=== PATIENT | male | born 1960 | race Two or more races ===

== ENCOUNTER 2018-02-01 05:57 | Day surgery (SDC) | payer BC ==
[2018-01-31 13:38] LABS: BASOPHILS % (AUTO) 0.5 % (0-1); EOSINOPHILS # (AUTO) 0.2 X10'3 (0-0.9); EOSINOPHILS % (AUTO) 3.2 % (0-6); HEMATOCRIT 34.3 % (42.0-52.0); HEMOGLOBIN 11.9 g/dl (14.0-17.9); LYMPHOCYTES # (AUTO) 2.2 X10'3 (1.1-4.8); LYMPHOCYTES % (AUTO) 29.6 % (21-51); MEAN CORPUSCULAR HEMOGLOBIN 31.3 PG (27.0-31.0); MEAN CORPUSCULAR HGB CONC 34.6 % (33.0-36.5); MEAN CORPUSCULAR VOLUME 90.6 FL (78-98); MEAN PLATELET VOLUME 8.9 FL (7.4-10.4); MONOCYTES # (AUTO) 0.5 X10'3 (0-0.9); MONOCYTES % (AUTO) 7.4 % (2-12); NEUTROPHILS # (AUTO) 4.4 X10'3 (1.8-7.7); NEUTROPHILS % (AUTO) 59.3 % (42-75); PLATELET COUNT 211 X10'3 (140-440); RED BLOOD COUNT 3.78 X10'6 (4.70-6.10); RED CELL DISTRIBUTION WIDTH 13.1 % (11.5-14.5); WHITE BLOOD COUNT 7.5 X10'3 (4.5-11.0)
[2018-01-31 13:47] LABS: ALBUMIN 3.7 G/DL (3.4-5.0); ANION GAP 13 (8-16); BLOOD UREA NITROGEN 68 MG/DL (7-18); BUN/CREATININE RATIO 13.5 (5.4-32.0); CALCIUM 7.3 MG/DL (8.5-10.1); CHLORIDE 108 MMOL/L (99-107); CREATININE 5.04 MG/DL (0.60-1.10); GLUCOSE 99 MG/DL (70-104); PARTIAL THROMBOPLASTIN TIME 28 SECONDS (22-32); POTASSIUM 5.5 MMOL/L (3.5-5.1); PROTHROMBIN TIME 10.4 SECONDS (9.0-12.0); SODIUM 143 MMOL/L (135-145); TOTAL CARBON DIOXIDE 22.1 MMOL/L (24-32); eGFR 12 ML/MIN
[~2018-02-01] VITALS: Ht 170.2 cm; Wt 80.0 kg
[2018-02-01] VITALS (15 sets, daily range): BP systolic 108–160; BP diastolic 57–113
[~2018-02-01 05:57] MED LIST: ASPI-974 PO; ATOR10TA PO; CLOP75TA35 PO; HYDR-4069 PO; NEBI20TA2 PO
[2018-02-01] MEDS ORDERED: LORazepam 0.5 MG tablet PO PRN (06:10)
[2018-02-01] MEDS ORDERED: diphenhydrAMINE 25mg capsule PO PRN (06:10)
[2018-02-01] MEDS ORDERED: sod bicarbonate 150mEq in D5W 1,150 ML IV ONE (06:10)
[2018-02-01] MEDS ORDERED: ASPI81TA52 PO (06:15)
[2018-02-01] MEDS ORDERED: normal saline 1000ml 1,000 ML IV SCH (06:20)
[2018-02-01] MEDS ORDERED: midazolam 2 mg/2 ml injection ONE (08:41)
[2018-02-01] MEDS ORDERED: heparin 1,000unit/ml 10ml vial 10 ML ONE (08:41)
[2018-02-01] MEDS ORDERED: fentaNYL/PF 50MCG/1 ML 2ML syringe ONE (08:41)
[2018-02-01] MEDS ORDERED: LIDOcaine 1%/PF (10mg/ml) 5ml vial ONE (08:41)
[2018-02-01] MEDS ORDERED: iohexol 350MG/ML 100ml bottle IV ONE ×3 (08:41→10:26)
[2018-02-01] MEDS ORDERED: iohexol 350 MG/ML 50ML vial IV ONE (08:41)
[2018-02-01] MEDS ORDERED: nitroGLYCERIN-Tridil 50MG/D5W 250 ML IV ONE (08:42)
[2018-02-01] MEDS ORDERED: clopidogrel 300mg tablet ONE (10:32)
[2018-02-01] MEDS ORDERED: heparin 10,000 units/1 ML INJ IV PRN (11:35)
[2018-02-01] MEDS ORDERED: heparin 10,000 units/1 ML INJ IV ONE (11:35)
[2018-02-01] MEDS ORDERED: aspirin 325mg tablet PO ONE (11:50)
[2018-02-01] MEDS ORDERED: CLOPIDOGREL BISULFATE 300MG TAB PO ONE (11:50)
[2018-02-01] MEDS ORDERED: cyclobenzaprine 10mg tablet PO PRN (11:55)
[2018-02-01] MEDS ORDERED: magnesium hydroxide 30ml (MOM) UD suspension PO PRN (11:55)
[2018-02-01] MEDS ORDERED: acetaminophen 325mg tablet PO PRN (11:55)
[2018-02-01] MEDS ORDERED: proCHLORperazine 10 MG/2 ml inj IV PRN (11:55)
[2018-02-01] MEDS ORDERED: OXAZEpam 15mg capsule PO PRN (11:55)
[2018-02-01] MEDS ORDERED: sodium bicarbonate (8.4%) inj. 150 MEQ in sodium chloride 0.45% 1,000 ML IV SCH (12:05)
[2018-02-01] MEDS ORDERED: docusate sod 100mg capsule PO SCH (20:00)
[2018-02-02] MEDS ORDERED: clopidogrel 75mg tablet PO SCH (08:00)
[2018-02-02] MEDS ORDERED: aspirin 325mg tablet PO SCH (08:30)
== END 2018-02-01 19:00 | disposition home or self-care (01) ==
LOC: SSTAY O 05:57
PROVIDERS: ATTEND Internal Medicine Cardiovascular Disease
DX: I25.10 Atherosclerotic heart disease of native coronary artery without angina pectoris (principal); E78.5 Hyperlipidemia, unspecified; I12.9 Hypertensive chronic kidney disease with stage 1 through stage 4 chronic kidney disease, or unspecified chronic kidney disease; N18.9 Chronic kidney disease, unspecified; Z95.5 Presence of coronary angioplasty implant and graft; Z79.82 Long term (current) use of aspirin; Z99.2 Dependence on renal dialysis; Z79.899 Other long term (current) drug therapy; Z72.89 Other problems related to lifestyle; Z98.890 Other specified postprocedural states
CPT/HCPCS: 36415; 80048; 85025; 85347; 85610; 85730; 92920; 92921; 93005; 99152; 99153; A6257; A6402; C1725; C1760; C1769; C1874; C9600; J1644; J2001; J2250; J3010; J3490; J7030; Q0163; Q9967; A4620

== ENCOUNTER 2019-09-27 07:59 | Emergency (ER) | payer BC ==
[~2019-09-27] VITALS: Ht 170.2 cm; Wt 83.0 kg
[~2019-09-27 07:59] MED LIST changes: -ASPI-974 PO; +ASPI81TA52 PO
[2019-09-27] MEDS ORDERED: ondansetron 4mg rapidly disintigrating tab PO ONE (08:40)
[2019-09-27] MEDS ORDERED: meclizine 12.5mg tablet PO ONE (08:40)
[2019-09-27 09:12] LABS: BASOPHILS % (AUTO) 0.6 % (0-1); EOSINOPHILS # (AUTO) 0.1 X10'3 (0-0.9); EOSINOPHILS % (AUTO) 1.6 % (0-6); HEMATOCRIT 34.8 % (42.0-52.0); HEMOGLOBIN 11.9 g/dl (14.0-17.9); LYMPHOCYTES % (AUTO) 35.5 % (21-51); MEAN CORPUSCULAR HEMOGLOBIN 33.8 PG (27.0-31.0); MEAN CORPUSCULAR HGB CONC 34.2 g/dL (33.0-36.5); MEAN PLATELET VOLUME 9.1 FL (7.4-10.4); MONOCYTES # (AUTO) 0.7 X10'3 (0-0.9); MONOCYTES % (AUTO) 8.3 % (2-12); NEUTROPHILS # (AUTO) 4.6 X10'3 (1.8-7.7); PLATELET COUNT 180 X10'3 (140-440); RED BLOOD COUNT 3.52 X10'6 (4.70-6.10); RED CELL DISTRIBUTION WIDTH 13.8 % (11.5-14.5); WHITE BLOOD COUNT 8.5 X10'3 (4.5-11.0)
[2019-09-27 09:20] LABS: ALANINE AMINOTRANSFERASE 26 U/L (12-78); ALBUMIN/GLOBULIN RATIO 0.9 (1.1-1.5); ALKALINE PHOSPHATASE 67 IU/L (46-116); ANION GAP 13 (8-16); ASPARTATE AMINO TRANSFERASE 19 U/L (10-37); BILIRUBIN,TOTAL 0.4 MG/DL (0.1-1.0); BLOOD UREA NITROGEN 68 MG/DL (7-18); BUN/CREATININE RATIO 7.9 (5.4-32.0); CALCIUM 8.7 MG/DL (8.5-10.1); CHLORIDE 103 MMOL/L (99-107); CREATININE 8.61 MG/DL (0.60-1.10); GLUCOSE 116 MG/DL (70-104); MAGNESIUM 2.6 MG/DL (1.5-2.4); POTASSIUM 4.6 MMOL/L (3.5-5.1); SODIUM 139 MMOL/L (135-145); TOTAL CARBON DIOXIDE 23.5 MMOL/L (24-32); TOTAL PROTEIN 8.5 G/DL (6.4-8.2); eGFR 6 ML/MIN
[2019-09-27 09:46] VITALS: BP 157/83
[2019-09-27] MEDS ORDERED: MECL-111 PO (09:51)
== END 2019-09-27 10:12 | disposition home or self-care (01) ==
LOC: ER 08:00
DX: R42 Dizziness and giddiness (principal); I25.10 Atherosclerotic heart disease of native coronary artery without angina pectoris; E11.22 Type 2 diabetes mellitus with diabetic chronic kidney disease; N18.6 End stage renal disease; F10.99 Alcohol use, unspecified with unspecified alcohol-induced disorder; Z99.2 Dependence on renal dialysis; Z95.5 Presence of coronary angioplasty implant and graft; Z79.82 Long term (current) use of aspirin; Y90.9 Presence of alcohol in blood, level not specified
CPT/HCPCS: 36415; 80053; 83735; 84484; 85025; 93005; 99284; J8597

== ENCOUNTER 2020-10-15 05:50 | Day surgery (SDC) | payer BC, MEDICARE ==
[2020-10-14 15:12] LABS: BASOPHILS % (AUTO) 0.7 % (0-1); EOSINOPHILS # (AUTO) 0.1 X10'3 (0-0.9); EOSINOPHILS % (AUTO) 1.6 % (0-6); HEMATOCRIT 36.1 % (42.0-52.0); HEMOGLOBIN 12.2 g/dl (14.0-17.9); LYMPHOCYTES # (AUTO) 2.1 X10'3 (1.1-4.8); LYMPHOCYTES % (AUTO) 33.4 % (21-51); MEAN CORPUSCULAR HEMOGLOBIN 33.4 PG (27.0-31.0); MEAN CORPUSCULAR HGB CONC 33.8 g/dL (33.0-36.5); MEAN CORPUSCULAR VOLUME 98.9 FL (78-98); MEAN PLATELET VOLUME 9.5 FL (7.4-10.4); MONOCYTES # (AUTO) 0.5 X10'3 (0-0.9); MONOCYTES % (AUTO) 8.4 % (2-12); NEUTROPHILS # (AUTO) 3.5 X10'3 (1.8-7.7); NEUTROPHILS % (AUTO) 55.9 % (42-75); PLATELET COUNT 174 X10'3 (140-440); RED BLOOD COUNT 3.65 X10'6 (4.70-6.10); RED CELL DISTRIBUTION WIDTH 13.1 % (11.5-14.5); WHITE BLOOD COUNT 6.2 X10'3 (4.5-11.0)
[2020-10-14 15:19] LABS: ANION GAP 13 (8-16); BLOOD UREA NITROGEN 67 MG/DL (7-18); BUN/CREATININE RATIO 7.5 (5.4-32.0); CALCIUM 8.6 MG/DL (8.5-10.1); CHLORIDE 104 MMOL/L (99-107); GLUCOSE 134 MG/DL (70-104); SODIUM 143 MMOL/L (135-145); TOTAL CARBON DIOXIDE 25.7 MMOL/L (24-32); eGFR 6 ML/MIN
[2020-10-14 15:23] LABS: PARTIAL THROMBOPLASTIN TIME 27 SECONDS (22-32)
[~2020-10-15] VITALS: Ht 170.2 cm; Wt 84.1 kg
[2020-10-15] VITALS (12 sets, daily range): BP systolic 148–176; BP diastolic 71–90
[~2020-10-15 05:50] MED LIST changes: +MECL-159 PO
[2020-10-15] MEDS ORDERED: sodium bicarbonate (8.4%) inj. 150 ML in dextrose 5%-water 1,000 ML IV ONE (06:10)
[2020-10-15] MEDS ORDERED: diphenhydrAMINE 25mg capsule PO PRN (06:10)
[2020-10-15] MEDS ORDERED: LORazepam 0.5 MG tablet PO PRN (06:10)
[2020-10-15] MEDS ORDERED: LIDOcaine/PRILOcaine 5gm cream TP ONE (06:15)
[2020-10-15] MEDS ORDERED: acetylcysteine 200 MG/ml 4ml vial PO PRN ×2 (06:15→07:00)
[2020-10-15] MEDS ORDERED: CALC667T6 PO (06:18)
[2020-10-15] MEDS ORDERED: FOLI0.8T19 PO (06:18)
[2020-10-15] MEDS ORDERED: OMEG1CAP13 PO (06:18)
[2020-10-15] MEDS ORDERED: ACET200V24 PO (06:18)
[2020-10-15] MEDS ORDERED: ATOR-2 PO (06:18)
[2020-10-15] MEDS ORDERED: MULT-1085 PO (06:18)
[2020-10-15] MEDS ORDERED: ASPI-101 PO (06:18)
[2020-10-15] MEDS ORDERED: nitroGLYCERIN-Tridil 50MG/D5W 250 ML IV ONE (07:34)
[2020-10-15] MEDS ORDERED: heparin 1,000unit/ml 10ml vial 10 ML ONE (07:35)
[2020-10-15] MEDS ORDERED: iohexol 350MG/ML 100ml bottle IV ONE (07:35)
[2020-10-15] MEDS ORDERED: LIDOcaine 1% (10mg/ml)w/preservative injection 20ml MDV ONE (07:35)
[2020-10-15] MEDS ORDERED: midazolam 2 mg/2 ml injection ONE (07:35)
[2020-10-15] MEDS ORDERED: iohexol 350 MG/ML 50ML vial IV ONE (07:35)
[2020-10-15] MEDS ORDERED: fentaNYL/PF 50MCG/1 ML 2ML syringe ONE (07:35)
[2020-10-15] MEDS ORDERED: verapamil 2.5 mg/ml inj IV ONE (07:35)
[2020-10-15] MEDS ORDERED: iohexol 350 MG/1 ML 200ml bottle ONE (08:55)
[2020-10-15] MEDS ORDERED: heparin 25,000 UNIT/250ml bag 250 ML IV ONE (08:55)
[2020-10-15] MEDS ORDERED: clopidogrel 300mg tablet ONE (09:23)
[2020-10-15] MEDS ORDERED: aspirin 81mg tablet.DR PO SCH (10:30)
[2020-10-15 16:06] LABS: ISTAT HGB ART 10.9 g/dl (14.0-18.0); ISTAT Hct ART 32 %PCV (42-52); ISTAT O2 SATURATION ARTERIAL 98 % (95-98); ISTAT SOURCE ART
[2020-10-16] MEDS ORDERED: clopidogrel 75mg tablet PO SCH (08:00)
== END 2020-10-15 15:00 | disposition home or self-care (01) ==
LOC: SSTAY O 05:50
PROVIDERS: ATTEND Internal Medicine Cardiovascular Disease
DX: R53.83 Other fatigue (principal); T82.855A Stenosis of coronary artery stent, initial encounter; I25.10 Atherosclerotic heart disease of native coronary artery without angina pectoris; E78.49 Other hyperlipidemia; I12.0 Hypertensive chronic kidney disease with stage 5 chronic kidney disease or end stage renal disease; N18.6 End stage renal disease; Z95.5 Presence of coronary angioplasty implant and graft; Z99.2 Dependence on renal dialysis; Z79.899 Other long term (current) drug therapy; Z79.01 Long term (current) use of anticoagulants; Z79.82 Long term (current) use of aspirin; Z83.3 Family history of diabetes mellitus; Z81.1 Family history of alcohol abuse and dependence; Z84.1 Family history of disorders of kidney and ureter; Y83.8 Other surgical procedures as the cause of abnormal reaction of the patient, or of later complication, without mention of misadventure at the time of the procedure; Y92.89 Other specified places as the place of occurrence of the external cause
CPT/HCPCS: 36415; 76937; 80048; 82803; 85014; 85025; 85347; 85610; 85730; 92920; 93005; 93460; 99152; 99153; C1725; C1751; C1769; C1894; J1644; J2001; J2250; J3010; J7040; Q0163; Q9967; 93458; A4620; A5120; A6258; J3490

== ENCOUNTER 2021-11-25 11:59 | Outpatient (CLI) | payer MEDICARE, BC ==
[~2021-11-25 11:59] MED LIST changes: +ACET200V24 PO; +ASPI-101 PO; -ASPI81TA52 PO; +ATOR-2 PO; -ATOR10TA PO; +CALC667T6 PO; +CLOP75TA34 PO; -CLOP75TA35 PO; +FOLI0.8T19 PO; -MECL-159 PO; +MULT-1085 PO; +OMEG1CAP13 PO
[2021-11-25 12:46] LABS: ALBUMIN 3.7 G/DL (3.4-5.0); ANION GAP 12 (8-16); BLOOD UREA NITROGEN 90 MG/DL (7-18); CALCIUM 8.9 MG/DL (8.5-10.1); CHLORIDE 102 MMOL/L (99-107); CREATININE 6.41 MG/DL (0.60-1.10); GLUCOSE 179 MG/DL (70-104); POTASSIUM 5.2 MMOL/L (3.5-5.1); SODIUM 137 MMOL/L (135-145); TOTAL CARBON DIOXIDE 22.6 MMOL/L (24-32); eGFR 9 ML/MIN
== END 2021-11-25 23:59 | disposition home or self-care (01) ==
LOC: LAB 11:59
PROVIDERS: ATTEND Internal Medicine Nephrology
DX: I10 Essential (primary) hypertension (principal); T86.19 Other complication of kidney transplant; Z94.0 Kidney transplant status
CPT/HCPCS: 36415; 80048

== ENCOUNTER 2021-12-04 10:16 | Outpatient (CLI) | payer MEDICARE, BC ==
[2021-12-04 10:49] LABS: ALBUMIN 3.6 G/DL (3.4-5.0); ANION GAP 13 (8-16); BLOOD UREA NITROGEN 81 MG/DL (7-18); BUN/CREATININE RATIO 17.6 (5.4-32.0); CALCIUM 8.3 MG/DL (8.5-10.1); CHLORIDE 101 MMOL/L (99-107); CREATININE 4.59 MG/DL (0.60-1.10); GLUCOSE 120 MG/DL (70-104); POTASSIUM 4.3 MMOL/L (3.5-5.1); SODIUM 137 MMOL/L (135-145); TOTAL CARBON DIOXIDE 23.2 MMOL/L (24-32); eGFR 13 ML/MIN
== END 2021-12-04 23:59 | disposition home or self-care (01) ==
LOC: LAB 10:16
PROVIDERS: ATTEND Internal Medicine Nephrology
DX: I10 Essential (primary) hypertension (principal); Z94.0 Kidney transplant status
CPT/HCPCS: 36415; 80048

== ENCOUNTER 2022-01-18 11:15 | Outpatient (CLI) | payer MEDICARE, BC ==
[2022-01-18 12:44] LABS: ALBUMIN 4.1 G/DL (3.4-5.0); ANION GAP 12 (8-16); BLOOD UREA NITROGEN 46 MG/DL (7-18); BUN/CREATININE RATIO 16.3 (5.4-32.0); CALCIUM 8.4 MG/DL (8.5-10.1); CHLORIDE 103 MMOL/L (99-107); CREATININE 2.82 MG/DL (0.60-1.10); GLUCOSE 102 MG/DL (70-104); POTASSIUM 5.2 MMOL/L (3.5-5.1); SODIUM 137 MMOL/L (135-145); TOTAL CARBON DIOXIDE 22.5 MMOL/L (24-32); eGFR 23 ML/MIN
== END 2022-01-18 23:59 | disposition home or self-care (01) ==
LOC: LAB 11:15
PROVIDERS: ATTEND Internal Medicine Nephrology
DX: T86.19 Other complication of kidney transplant (principal); Z94.0 Kidney transplant status
CPT/HCPCS: 36415; 80048

== ENCOUNTER 2022-01-20 09:39 | Outpatient (CLI) | payer MEDICARE, BC ==
[2022-01-20 10:58] LABS: ALBUMIN 4.2 G/DL (3.4-5.0); ANION GAP 13 (8-16); BLOOD UREA NITROGEN 54 MG/DL (7-18); BUN/CREATININE RATIO 18.3 (5.4-32.0); CALCIUM 8.7 MG/DL (8.5-10.1); CHLORIDE 100 MMOL/L (99-107); CREATININE 2.95 MG/DL (0.60-1.10); GLUCOSE 103 MG/DL (70-104); POTASSIUM 5.1 MMOL/L (3.5-5.1); SODIUM 136 MMOL/L (135-145); TOTAL CARBON DIOXIDE 22.9 MMOL/L (24-32); eGFR 22 ML/MIN
== END 2022-01-20 23:59 | disposition home or self-care (01) ==
LOC: LAB 09:39
PROVIDERS: ATTEND Internal Medicine
DX: T86.10 Unspecified complication of kidney transplant (principal); Z94.0 Kidney transplant status; Z79.899 Other long term (current) drug therapy; Z51.81 Encounter for therapeutic drug level monitoring
CPT/HCPCS: 36415; 80048; 80197

== ENCOUNTER 2023-05-17 11:36 | Emergency (ER) | payer MEDICARE, BC ==
[~2023-05-17] VITALS: Ht 170.2 cm; Wt 165.0 kg
[~2023-05-17 11:36] MED LIST changes: -ACET200V24 PO; -CALC667T6 PO; +CARV12.5 PO; -FOLI0.8T19 PO; -HYDR-4069 PO; +HYDR-4070 PO; -MULT-1085 PO; +MYCO500T PO; -NEBI20TA2 PO; -OMEG1CAP13 PO; +PRED5TAB PO; +SODI650T29 PO; +TACR1CAP PO; +TACR1CAP24 PO; +levaquin PO
[2023-05-17 12:31] VITALS: BP 145/88
[2023-05-17 13:13] LABS: BASOPHILS % (AUTO) 0.2 % (0-1); EOSINOPHILS # (AUTO) 0.1 X10'3 (0-0.9); EOSINOPHILS % (AUTO) 0.6 % (0-6); HEMATOCRIT 42.2 % (42.0-52.0); HEMOGLOBIN 14.2 g/dl (14.0-17.9); LYMPHOCYTES # (AUTO) 0.3 X10'3 (1.1-4.8); LYMPHOCYTES % (AUTO) 3.7 % (21-51); MEAN CORPUSCULAR HEMOGLOBIN 30.8 PG (27.0-31.0); MEAN CORPUSCULAR HGB CONC 33.6 g/dL (33.0-36.5); MEAN CORPUSCULAR VOLUME 91.6 FL (78-98); MEAN PLATELET VOLUME 9.3 FL (7.4-10.4); MONOCYTES # (AUTO) 0.6 X10'3 (0-0.9); MONOCYTES % (AUTO) 6.4 % (2-12); NEUTROPHILS # (AUTO) 8.2 X10'3 (1.8-7.7); NEUTROPHILS % (AUTO) 89.1 % (42-75); PLATELET COUNT 198 X10'3 (140-440); RED BLOOD COUNT 4.61 X10'6 (4.70-6.10); RED CELL DISTRIBUTION WIDTH 14.1 % (11.5-14.5); WHITE BLOOD COUNT 9.1 X10'3 (4.5-11.0)
[2023-05-17 13:30] LABS: ALANINE AMINOTRANSFERASE 21 U/L (12-78); ALBUMIN 4.4 G/DL (3.4-5.0); ALBUMIN/GLOBULIN RATIO 1.2 (1.1-1.5); ALKALINE PHOSPHATASE 85 IU/L (46-116); ANION GAP 11 (8-16); ASPARTATE AMINO TRANSFERASE 15 U/L (10-37); BILIRUBIN,TOTAL 0.9 MG/DL (0.1-1.0); BLOOD UREA NITROGEN 43 MG/DL (7-18); BUN/CREATININE RATIO 19.5 (10.0-20.0); CALCIUM 9.3 MG/DL (8.5-10.1); CHLORIDE 101 MMOL/L (99-107); CREATININE 2.21 MG/DL (0.60-1.10); GLUCOSE 111 MG/DL (70-104); SODIUM 134 MMOL/L (135-145); TOTAL CARBON DIOXIDE 21.9 MMOL/L (24-32); eGFR 30 ML/MIN
[2023-05-17 13:38] LABS: MAGNESIUM 1.8 MG/DL (1.5-2.4)
== END 2023-05-17 14:43 | disposition home or self-care (01) ==
LOC: ER 11:36
DX: R19.7 Diarrhea, unspecified (principal); E86.0 Dehydration; I51.9 Heart disease, unspecified; E13.22 Other specified diabetes mellitus with diabetic chronic kidney disease; N18.9 Chronic kidney disease, unspecified; Z79.899 Other long term (current) drug therapy
CPT/HCPCS: 36415; 80053; 83735; 85025; 99283